=== PATIENT | male | born 1970 | race American Indian/Alaskan Native ===

== ENCOUNTER 2019-10-08 22:05 | Emergency (ER) | payer SELFPAY ==
[2019-10-08 22:10] VITALS: BP 150/93
--- NOTE | 2019-10-08 22:14 | Emergency Department Report ---
Stated Complaint: BACK PAIN/HIGH BP/TOOTHACHE Time Seen by Provider: 10/08/19 22:08 - HPI History of Present Illness: 49 y/o male comes in for right lower tooth pain that started today and lower back pain on the left that started yesterday. 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 He is aware that he has a bad tooth. Took Aleve for pain. - Exam Physical Exam: AxO times 4 NAD NAD Oral mucus moist left lower tooth decayed to the gum no swelling of the jaw on gingiva. MSE screening note: Focused history and physical exam performed. Due to findings the following was ordered: 49 y/o male comes in for right lower tooth pain that started today and lower back pain on the left that started yesterday. 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 He is aware that he has a bad tooth. Took Aleve for pain. Recommend to take Ibuprofen over the counter and to follow up with a dentist this week and your primary Care provider. ED Disposition for [facility] [place] Disposition: Z-07 MED SCREENING EXAM-LEFT Is pt being admited?: No Does the pt Need Aspirin: No Condition: Stable Additional Instructions: Recommend to take Ibuprofen over the counter and to follow up with a dentist this week and your primary Care provider. Referrals: [facility] [Outside] - 3-5 Days [facility] [Outside] - 3-5 Days [facility] [Outside] - 3-5 Days
== END 2019-10-08 22:50 | disposition left against medical advice (07) ==
LOC: ED 22:05
DX: K08.89 Other specified disorders of teeth and supporting structures (principal); M54.5 Low back pain; I10 Essential (primary) hypertension; J40 Bronchitis, not specified as acute or chronic
CPT/HCPCS: 99281

== ENCOUNTER 2020-01-05 20:04 | Emergency (ER) | payer SELFPAY ==
[2020-01-05 20:56] LABS: Bilirubin,Urine SM (Negative); Blood,Urine SM (Negative); Color,Urine Yellow (Yellow); Mucus,Urine 3+ /HPF
[2020-01-05 21:00] LABS: Ictotest,Urine Negative (Negative)
[2020-01-05 21:21] LABS: Basophils # (Auto) 0.1 K/mm3 (0.0-0.1); Eosinophils % (Auto) 0.4 % (0.0-4.3); Hemoglobin 15.1 gm/dl (11.8-15.2); Lymphocytes # (Auto) 0.8 K/mm3 (1.2-5.4); Mean Corpuscular HGB Conc 33 % (32-34); Mean Corpuscular Volume 86 fl (84-94); Monocytes # (Auto) 0.2 K/mm3 (0.0-0.8); Monocytes % (Auto) 2.8 % (0.0-7.3); Platelet Count 291 K/mm3 (140-440); Red Blood Count 5.36 M/mm3 (3.65-5.03); Red Cell Distribution Width 17.7 % (13.2-15.2)
[2020-01-05 21:43] LABS: Alanine Aminotransferase 9 units/L (7-56); Albumin 4.5 g/dL (3.9-5); BUN/Creatinine Ratio 9; Blood Urea Nitrogen 8 mg/dL (9-20); Calcium 9.7 mg/dL (8.4-10.2); Hemolysis Index 7
[2020-01-05] MEDS ORDERED: KETOROLAC 30 MG/1 ML INJ IV ONE (23:08)
[2020-01-05] MEDS ORDERED: SODIUM CHLORIDE 0.9% 1000 ML 1,000 ML IV ONE (23:08)
[2020-01-05] MEDS ORDERED: METOCLOPRAMIDE 10 MG/2 ML INJ IV ONE (23:09)
--- NOTE | 2020-01-05 23:12 | Emergency Department Report ---
ED Male HPI - General Chief complaint: Abdominal Pain Stated complaint: LEFT SIDE FLANK PAIN Time Seen by Provider: 01/05/20 22:48 Source: patient Mode of arrival: Ambulatory Limitations: No Limitations - History of Present Illness Initial comments: 49-year-old -[place] male presents to the emergency room for left flank pain that started this morning. Patient states it is sharp and having burning with urination. Patient reports nausea and vomiting. Patient reports he saw blood in his urine. He does admit to having a past medical history of kidney stones. Patient also reports he has a history of hypertension and has been out of his medications. MD Complaint: dysuria, other (Left flank pain) -: This morning Location: left flank Severity: severe Severity scale (0 -10): 9 Quality: burning, sharp Consistency: constant Improves with: none Worsens with: urination blood in urine, dysuria, nausea/vomiting. denies: discharge, swelling, mass - Related Data Sexually active: Yes Previous Rx's Medication Instructions Recorded Last Taken Type Ibuprofen [Motrin] 800 mg PO Q8H PRN #20 tablet 01/18/14 Unknown Rx HYDROcodone/APAP 5-325 [[place] 1 each PO Q6HR PRN #10 tablet 01/06/20 Unknown Rx 5-325 mg TAB] Ibuprofen [Motrin 600 MG tab] 600 mg PO Q8H PRN #30 tablet 01/06/20 Unknown Rx Metoprolol [Lopressor TAB] 25 mg PO BID #30 tablet 01/06/20 Unknown Rx Tamsulosin [Flomax] 0.4 mg PO QDAY #4 capsule 01/06/20 Unknown Rx amLODIPine 10 mg PO DAILY #15 tab 01/06/20 Unknown Rx cephALEXin [Keflex] 500 mg PO Q12HR 10 Days #20 cap 01/06/20 Unknown Rx Allergies Allergy/AdvReac Type Severity Reaction Status Date / Time No Known Allergies Allergy Unverified 01/18/14 13:57 ED Review of Systems ROS: Stated complaint: LEFT SIDE FLANK PAIN Other details as noted in HPI Comment: All other systems reviewed and negative ED Past Medical Hx - Past Medical History Previous Medical History?: Yes Hx Hypertension: Yes Hx Kidney Stones: Yes Hx Asthma: Yes Additional medical history: bronchitis - Surgical History Past Surgical History?: No - Social History Smoking Status: Never Smoker Substance Use Type: None - Medications Home Medications: Home Medications Medication Instructions Recorded Confirmed Last Taken Type Ibuprofen [Motrin] 800 mg PO Q8H PRN #20 tablet 01/18/14 Unknown Rx HYDROcodone/APAP 5-325 [[place] 1 each PO Q6HR PRN #10 tablet 01/06/20 Unknown Rx 5-325 mg TAB] Ibuprofen [Motrin 600 MG tab] 600 mg PO Q8H PRN #30 tablet 01/06/20 Unknown Rx Metoprolol [Lopressor TAB] 25 mg PO BID #30 tablet 01/06/20 Unknown Rx Tamsulosin [Flomax] 0.4 mg PO QDAY #4 capsule 01/06/20 Unknown Rx amLODIPine 10 mg PO DAILY #15 tab 01/06/20 Unknown Rx cephALEXin [Keflex] 500 mg PO Q12HR 10 Days #20 cap 01/06/20 Unknown Rx ED Physical Exam - General Limitations: No Limitations General appearance: alert, in distress - Head Head exam: Present: atraumatic, normocephalic - Eye Eye exam: Present: normal appearance - ENT ENT exam: Present: mucous membranes moist - Neck Neck exam: Present: normal inspection, full ROM - Respiratory Respiratory exam: Present: normal lung sounds bilaterally. Absent: respiratory distress - Cardiovascular Cardiovascular Exam: Present: regular rate, normal rhythm. Absent: systolic murmur, diastolic murmur, rubs, gallop - Extremities Exam Extremities exam: Present: normal inspection - Back Exam Back exam: Present: CVA tenderness (L) - Neurological Exam Neurological exam: Present: alert, oriented X3 - Psychiatric Psychiatric exam: Present: normal affect, normal mood - Skin Skin exam: Present: warm, dry, intact, normal color. Absent: rash ED Course Vital Signs 01/05/20 20:24 Temperature 98.5 F Pulse Rate 103 H Respiratory 16 Rate Blood Pressure 150/101 O2 Sat by Pulse 98 Oximetry ED Medical Decision Making - Lab Data Result diagrams: 01/05/20 20:54 01/05/20 20:54 - Medical Decision Making 49-year-old -[place] male presents to the emergency room for left flank pain that started this morning. Patient states it is sharp and having burning with urination. Patient reports nausea and vomiting. Patient reports he saw blood in his urine. He does admit to having a past medical history of kidney stones. Patient also reports he has a history of hypertension and has been out of his medications. CBC CMP urinalysis and CT. IV normal saline Reglan 10 mg and Toradol [address] shows a 6 x 4 mm nonobstructing kidney calculi on the left side. I do not feel that this is causing his colicky pain as I believe it is mostly due to a urinary tract infection. Patient will be sent home on pain medication Flomax and Keflex. Patient will be referred to urology. Critical care attestation.: If time is entered above; I have spent that time in minutes in the direct care of this critically ill patient, excluding procedure time. ED Disposition Clinical Impression: UTI (urinary tract infection), Kidney stone on left side Disposition: - TO HOME OR SELFCARE Is pt being admited?: No Does the pt Need Aspirin: No Condition: Stable Instructions: Urinary Tract Infection in Men (ED), Kidney Stones (ED) Additional Instructions: CT scan shows a kidney stone on the left side that is nonobstructing. I would like for you to increase your fluid intake take your pain medication and complete your antibiotics for your urinary tract infection. Is very important for you to follow-up with a urologist I have referred you to Dr. Fernandez. Prescriptions: amLODIPine 10 mg PO DAILY #15 tab Tamsulosin [Flomax] 0.4 mg PO QDAY #4 capsule cephALEXin [Keflex] 500 mg PO Q12HR 10 Days #20 cap Metoprolol [Lopressor TAB] 25 mg PO BID #30 tablet Ibuprofen [Motrin 600 MG tab] 600 mg PO Q8H PRN #30 tablet PRN Reason: Pain HYDROcodone/APAP 5-325 [[place] 5-325 mg TAB] 1 each PO Q6HR PRN #10 tablet PRN Reason: Pain Referrals: PRIMARY CAREMD [Primary Care Provider] - 3-5 Days ANNA FERNANDEZ MD [Staff Physician] - 3-5 Days Forms: Work/School Release Form(ED)
--- NOTE | 2020-01-06 00:03 | Cat Scan Report ---
CT ABDOMEN AND PELVIS WITHOUT CONTRAST INDICATION / CLINICAL INFORMATION: Left flank pain. TECHNIQUE: Axial CT images were obtained through the abdomen and pelvis without IV contrast. All CT scans at [facility] location are performed using CT dose reduction for ALARA by means of automated exposure control. COMPARISON: None available. FINDINGS: LOWER CHEST: No significant abnormality. LIVER: No significant abnormality. GALLBLADDER: No significant abnormality. BILE DUCTS: No significant abnormality. PANCREAS: No significant abnormality. SPLEEN: No significant abnormality. ADRENALS: No significant abnormality. RIGHT KIDNEY and URETER: No significant abnormality. LEFT KIDNEY and URETER: 6 x 4 mm calculus within the lower pole the left kidney. No obstructive left ureteral calculus identified.. STOMACH and SMALL BOWEL: No significant abnormality. COLON: No significant abnormality. APPENDIX: No significant abnormality. PERITONEUM: No free fluid. No free air. No fluid collection. LYMPH NODES: Bilateral inguinal adenopathy.. AORTA and ARTERIES: No significant abnormality. IVC and VEINS: No significant abnormality. URINARY BLADDER: No significant abnormality. REPRODUCTIVE ORGANS: No significant abnormality. ADDITIONAL FINDINGS: None. SKELETAL SYSTEM: No significant abnormality. IMPRESSION: 1. Nonobstructive 6 x 4 mm calculus within the lower pole the left kidney. 2. Bilateral inguinal adenopathy, worse in the right. Signer Name: Prashant Bullock MD Signed: 01/05/2020 11:59 PM Workstation Name: [id number]
[2020-01-06] MEDS ORDERED: oxyCODONE /ACETAMINOPHEN 5-325MG TAB PO ONE (00:28)
[2020-01-06] MEDS ORDERED: TAMSULOSIN 0.4 MG CAP PO ONE (00:29)
[2020-01-06 01:35] VITALS: BP 152/93
== END 2020-01-06 01:20 | disposition home or self-care (01) ==
LOC: ED 20:04
DX: N39.0 Urinary tract infection, site not specified (principal); N20.0 Calculus of kidney; J45.909 Unspecified asthma, uncomplicated; I10 Essential (primary) hypertension; Z79.899 Other long term (current) drug therapy
CPT/HCPCS: 36415; 74176; 80053; 81001; 85025; 87086; 96361; 96374; 96375; 99284; J1885; J2765; J7030

== ENCOUNTER 2020-08-11 00:26 | Emergency (ER) | payer SELFPAY ==
[2020-08-11] MEDS ORDERED: IBUPROFEN 600 MG TAB PO ONE (01:36)
[2020-08-11] MEDS ORDERED: SULFAMETHOXAZOLE/TRIMETHOPRIM 800/160MG DS TAB PO ONE (01:36)
[2020-08-11] MEDS ORDERED: LIDOCAINE-MPF (1%) 10 MG/1 ML VIAL 5 ML INFILTRATI ONE (01:36)
[2020-08-11 01:37] VITALS: BP 127/87
--- NOTE | 2020-08-11 02:55 | Emergency Department Report ---
ED General Adult HPI - General Chief complaint: Headache Stated complaint: LUMP ON SIDE OF HEAD Source: patient Mode of arrival: Ambulatory Limitations: No Limitations - History of Present Illness Initial comments: Patient is a 50-year-old -[place] male with a history of hypertension, asthma, kidney stones who presents to the ED with complaint of acute onset painful swollen mild erythematous maculopapular rash on right temporal scalp for the last 1 week, worse in the last 2 days. Patient states that the pain and swelling of worsened in the last 24 hours. Patient denies dizziness, syncope, chest pain, shortness of breath, headache, nausea, vomiting, sore throat, traumatic injury, neck pain, fall, hearing loss or change in vision. MD Complaint: right temporal scalp painful swollen rash -: Sudden, week(s) (1) Location: head Radiation: non-radiation Severity scale (0 -10): 5 Quality: aching, sharp Consistency: constant Improves with: none Worsens with: none Associated Symptoms: denies other symptoms, rash (Swollen, painful erythematous maculopapular fluctuant rash on right temporal scalp). denies: confusion, chest pain, cough, diaphoresis, headaches, loss of appetite, malaise, nausea/vomiting, seizure, syncope, other Treatments Prior to Arrival: none - Related Data Previous Rx's Medication Instructions Recorded Last Taken Type Ibuprofen [Motrin] 800 mg PO Q8H PRN #20 tablet 01/18/14 Unknown Rx HYDROcodone/APAP 5-325 [[place] 1 each PO Q6HR PRN #10 tablet 01/06/20 Unknown Rx 5-325 mg TAB] Tamsulosin [Flomax] 0.4 mg PO QDAY #4 capsule 01/06/20 Unknown Rx cephALEXin [Keflex] 500 mg PO Q12HR 10 Days #20 cap 01/06/20 Unknown Rx Ibuprofen [Motrin 600 MG tab] 600 mg PO Q8H PRN #30 tablet 08/11/20 Unknown Rx Metoprolol [Lopressor TAB] 25 mg PO BID #30 tablet 08/11/20 Unknown Rx amLODIPine 10 mg PO DAILY #30 tab 08/11/20 Unknown Rx Allergies Allergy/AdvReac Type Severity Reaction Status Date / Time No Known Allergies Allergy Unverified 01/18/14 13:57 ED Review of Systems ROS: Stated complaint: LUMP ON SIDE OF HEAD Other details as noted in HPI Constitutional: denies: chills, fever Eyes: denies: eye pain, eye discharge, vision change ENT: denies: ear pain, throat pain Respiratory: denies: cough, shortness of breath, wheezing Cardiovascular: denies: chest pain, palpitations Endocrine: no symptoms reported Gastrointestinal: denies: abdominal pain, nausea, diarrhea Genitourinary: denies: urgency, dysuria Musculoskeletal: denies: back pain, joint swelling, arthralgia Skin: rash (Swollen, painful mild erythematous maculopapular rash on right temporal scalp), change in color. denies: lesions, pruritus Neurological: denies: headache, weakness, paresthesias Psychiatric: denies: anxiety, depression Hematological/Lymphatic: denies: easy bleeding, easy bruising ED Past Medical Hx - Past Medical History Hx Hypertension: Yes Hx Kidney Stones: Yes Hx Asthma: Yes Additional medical history: bronchitis - Social History Smoking Status: Current Every Day Smoker Substance Use Type: Marijuana - Medications Home Medications: Home Medications Medication Instructions Recorded Confirmed Last Taken Type Ibuprofen [Motrin] 800 mg PO Q8H PRN #20 tablet 01/18/14 Unknown Rx HYDROcodone/APAP 5-325 [[place] 1 each PO Q6HR PRN #10 tablet 01/06/20 Unknown Rx 5-325 mg TAB] Tamsulosin [Flomax] 0.4 mg PO QDAY #4 capsule 01/06/20 Unknown Rx cephALEXin [Keflex] 500 mg PO Q12HR 10 Days #20 cap 01/06/20 Unknown Rx Ibuprofen [Motrin 600 MG tab] 600 mg PO Q8H PRN #30 tablet 08/11/20 Unknown Rx Metoprolol [Lopressor TAB] 25 mg PO BID #30 tablet 08/11/20 Unknown Rx amLODIPine 10 mg PO DAILY #30 tab 08/11/20 Unknown Rx ED Physical Exam - General Limitations: No Limitations General appearance: alert, in no apparent distress - Head Head exam: Present: atraumatic, normocephalic, normal inspection - Eye Eye exam: Present: normal appearance, PERRL, EOMI - ENT ENT exam: Present: normal exam, normal orophraynx, mucous membranes moist, TM's normal bilaterally, normal external ear exam - Neck Neck exam: Present: normal inspection, full ROM - Respiratory Respiratory exam: Present: normal lung sounds bilaterally. Absent: respiratory distress, wheezes, rales, rhonchi, stridor, chest wall tenderness, accessory muscle use, decreased breath sounds - Cardiovascular Cardiovascular Exam: Present: regular rate, normal rhythm, normal heart sounds. Absent: systolic murmur, diastolic murmur, rubs, gallop - GI/Abdominal GI/Abdominal exam: Present: soft, normal bowel sounds. Absent: tenderness, guarding, rebound, hyperactive bowel sounds, hypoactive bowel sounds - Extremities Exam Extremities exam: Present: normal inspection, full ROM, normal capillary refill - Back Exam Back exam: Present: normal inspection, full ROM. Absent: tenderness, CVA tenderness (R), CVA tenderness (L), muscle spasm, paraspinal tenderness, vertebral tenderness - Neurological Exam Neurological exam: Present: alert, oriented X3, CN II-XII intact, normal gait, reflexes normal - Psychiatric Psychiatric exam: Present: normal affect, normal mood - Skin Skin exam: Present: warm, dry, intact, normal color, rash (Swollen, tender, fluctuant, mildly erythematous maculopapular rash on right temporal scalp), erythema ED Course Vital Signs 08/11/20 01:30 Temperature 98.7 F Pulse Rate 88 Respiratory 18 Rate Blood Pressure 127/87 [Right] O2 Sat by Pulse 99 Oximetry - I & D Right Head Type of Procedure: Simple Site: Right temporal scalp Blade Size: 11 I & D Procedure: betadine prep, sterile drapes applied, sterile dressing applied Progress: Patient tolerated the procedure well. The area was anesthetized with a local anesthesia lidocaine 1% solution after cleaning with normal saline and Betadine. The rash was then incised with size 11 scalpel blade. Copious thick yellowish-white purulent discharge was expressed from the wound. The wound was then debrided thoroughly with normal saline and dressed appropriately. Patient tolerated procedure well. Patient was then discharged home on pain medications and antibiotics advised to follow-up with his primary care physician in 7 to 10 days for reevaluation or return to the ED immediately if symptoms get worse. ED Medical Decision Making - Medical Decision Making This is a 50-year-old -[place] male with a history of hypertension, asthma, kidney stones who presents to the ED with complaint of acute onset painful swollen mild erythematous maculopapular rash on right temporal scalp for the last 1 week, worse in the last 2 days. Patient states that the pain and swelling of worsened in the last 24 hours. In the ED, patient is alert and oriented x3 and is not in distress with normal vital signs. Patient was treated for pain in the ED and also given initial oral antibiotics in the ED. Right temporal scalp abscess was incised and drained per protocol. Patient tolerated procedure well. Patient was thereafter discharged home on pain medications and antibiotics and advised to follow-up with his primary care physician in 7 to 10 days for reevaluation or return to the ED immediately if symptoms get worse. - Differential Diagnosis Acute folliculitis; cutaneous abscess; cellulitis; Critical care attestation.: If time is entered above; I have spent that time in minutes in the direct care of this critically ill patient, excluding procedure time. ED Disposition Clinical Impression: Acute folliculitis, Cutaneous abscess of head excluding face Disposition: DC- TO HOME OR SELFCARE Is pt being admited?: No Does the pt Need Aspirin: No Condition: Stable Instructions: Skin Abscess, [id number], Folliculitis Additional Instructions: Take medication with food, drink plenty of fluids and follow-up with your primary care physician in 7 to 10 days for reevaluation. Return to the ED immediately if symptoms get worse. Prescriptions: amLODIPine 10 mg PO DAILY #30 tab Metoprolol [Lopressor TAB] 25 mg PO BID #30 tablet Ibuprofen [Motrin 600 MG tab] 600 mg PO Q8H PRN #30 tablet PRN Reason: Pain Referrals: [facility] [Provider Group] - 7-10 days Time of Disposition: 02:57 Print Language: ESTONIAN
== END 2020-08-11 03:10 | disposition home or self-care (01) ==
LOC: ED 00:26
DX: L02.811 Cutaneous abscess of head [any part, except face] (principal); L73.9 Follicular disorder, unspecified; I10 Essential (primary) hypertension; J45.909 Unspecified asthma, uncomplicated; F17.200 Nicotine dependence, unspecified, uncomplicated; F12.90 Cannabis use, unspecified, uncomplicated; Z79.899 Other long term (current) drug therapy; Z87.442 Personal history of urinary calculi
CPT/HCPCS: 99282

== ENCOUNTER 2022-02-21 11:05 | Emergency (ER) | payer MEDICAID ==
[2022-02-21] MEDS ORDERED: ONDANSETRON 4 MG/2 ML INJ IV ONE (11:23)
[2022-02-21] MEDS ORDERED: fentaNYL 100 MCG/2 ML INJ IV ONE (11:23)
[2022-02-21] MEDS ORDERED: KETOROLAC 30 MG/1 ML INJ IV ONE (11:24)
--- NOTE | 2022-02-21 11:30 | Emergency Department Report ---
HPI - General Chief Complaint: Abdominal Pain Time Seen by Provider: 02/21/22 11:16 - HPI HPI: Room 18 The patient is a 51-year-old male present with a chief complaint of abdominal pain and left flank pain. The patient states he has had constant left flank pain for the past 3 months ever since he was diagnosed with his last kidney stone. Patient is to dysuria for the same amount of time in addition to hematuria. Patient denies history of fever. Patient states he has noticed scrotal swelling for the past 2 to 3 days. The patient states his pain feels consistent with his previous bouts of renal colic. ED Past Medical Hx - Past Medical History Hx Hypertension: Yes Hx Kidney Stones: Yes Hx Asthma: Yes Additional medical history: bronchitis - Surgical History Additional Surgical History: Kidney stones - Family History Family history: no significant - Social History Smoking Status: Never Smoker Substance Use Type: None (Denies illicit drug use) - Medications Home Medications: Home Medications Medication Instructions Recorded Confirmed Last Taken Type Ibuprofen [Motrin] 800 mg PO Q8H PRN #20 tablet 01/18/14 Unknown Rx HYDROcodone/APAP 5-325 [[place] 1 each PO Q6HR PRN #10 tablet 01/06/20 Unknown Rx 5-325 mg TAB] Tamsulosin [Flomax] 0.4 mg PO QDAY #4 capsule 01/06/20 Unknown Rx cephALEXin [Keflex] 500 mg PO Q12HR 10 Days #20 cap 01/06/20 Unknown Rx Ibuprofen [Motrin 600 MG tab] 600 mg PO Q8H PRN #30 tablet 08/11/20 Unknown Rx Sulfamethoxazole/Trimethoprim 1 each PO Q12H #20 tablet 08/11/20 Unknown Rx [Bactrim DS TAB] HYDROcodone/APAP 5-325 [[place] 1 - 2 each PO Q6HR PRN #14 tablet 02/21/22 Unknown Rx 5/325] Metoprolol [Lopressor TAB] 25 mg PO BID #30 tablet 02/21/22 Unknown Rx amLODIPine 10 mg PO DAILY #30 tab 02/21/22 Unknown Rx levoFLOXacin [Levofloxacin] 500 mg PO QDAY #10 02/21/22 Unknown Rx ED Review of Systems ROS: Stated complaint: LT SIDE ABD PAIN Other details as noted in HPI Constitutional: denies: fever Eyes: denies: eye pain ENT: denies: throat pain Respiratory: no symptoms reported Cardiovascular: denies: chest pain Endocrine: no symptoms reported Gastrointestinal: abdominal pain, nausea, vomiting Genitourinary: dysuria, hematuria, testicular pain Musculoskeletal: back pain Neurological: denies: headache Physical Exam - Physical Exam Vital Signs: Vital Signs 02/21/22 11:11 Temperature 99.5 F Pulse Rate 86 Respiratory 18 Rate Blood Pressure 153/114 [Left] O2 Sat by Pulse 99 Oximetry Physical Exam: GENERAL: The patient is well-developed well-nourished male lying on EMS stretcher holding emesis basin appearing to be in moderate discomfort. [] HEENT: Normocephalic. Atraumatic. Extraocular motions are intact. Patient has moist mucous membranes. NECK: Supple. Trachea midline CHEST/LUNGS: Clear to auscultation. There is no respiratory distress noted. HEART/CARDIOVASCULAR: Regular. There is no tachycardia. There is no gallop rub or murmur. ABDOMEN: Abdomen is soft, with tenderness to palpation in the suprapubic, left upper quadrant and left lower quadrant. Patient has normal bowel sounds. There is no abdominal distention. SKIN: There is no rash. There is no edema. There is no diaphoresis. NEURO: The patient is awake, alert, and oriented. The patient is cooperative. The patient has no focal neurologic deficits. The patient has normal speech. GCS 15 MUSCULOSKELETAL: There is right CVA tenderness. There is no evidence of acute injury. GENITOURINARY: Tender swollen right testicle. ED Course Vital Signs 02/21/22 11:11 Temperature 99.5 F Pulse Rate 86 Respiratory 18 Rate Blood Pressure 153/114 [Left] O2 Sat by Pulse 99 Oximetry ED Medical Decision Making - Lab Data Result diagrams: 02/21/22 11:38 02/21/22 11:38 Laboratory Tests 02/21/22 02/21/22 02/21/22 11:38 11:38 13:32 WBC 9.0 RBC 5.34 H Hgb 15.2 Hct 44.8 MCV 84 MCH 28 MCHC 34 RDW 16.8 H Plt Count 323 Lymph % (Auto) 13.0 L [place] % (Auto) 7.4 H Eos % (Auto) 1.0 Baso % (Auto) 0.8 Lymph # (Auto) 1.2 [place] # (Auto) 0.7 Eos # (Auto) 0.1 Baso # (Auto) 0.1 Seg Neutrophils % 77.8 H Seg Neutrophils # 7.0 Sodium 140 Potassium 4.1 Chloride 102.2 Carbon Dioxide 26 Anion Gap 16 BUN 8 L Creatinine 1.1 Estimated GFR > 60 BUN/Creatinine Ratio 7 Glucose 100 Calcium 9.9 Total Bilirubin 0.80 AST 10 ALT 7 Alkaline Phosphatase 86 Total Protein 7.5 Albumin 4.3 Albumin/Globulin Ratio 1.3 Lipase 19 Urine Color Yellow Urine Turbidity Cloudy Specific [place] (Man) 1.020 Ur Protein (Man) 2+ Ur Ketones (Man) Negative Ur Nitrite (Man) Negative Ur Reducing Substances Not Reportable Urine Bilirubin (Man) Negative Urine Ictotest Not Reportable Leukocyte Esterase (Man) Moderate Urine WBC (Auto) > 182.0 H Urine RBC (Auto) 113.0 U Epithel Cells (Auto) 2.0 Urine Bacteria (Auto) 1+ Urine RBC (Manual) 3+ Hyaline Casts 2 Urine Mucus 1+ Urine Yeast (Budding) 1+ - Radiology Data Radiology results: report reviewed (Testicular ultrasound, CT abdomen pelvis), image reviewed (Testicular ultrasound, CT abdomen pelvis) [address] [address] Ultrasound Report Signed Patient: PAL IRELAND MR#: [id number] : 1970 Acct:[id number] Age/Sex: 51 / M ADM Date: 02/21/22 Loc: ED Attending Dr: Ordering Physician: KARL MCWILLIAMS MD Date of Service: 02/21/22 Procedure(s): US testicular doppler comp Accession Number(s): [id number] cc: KARL MCWILLIAMS MD ULTRASOUND SCROTUM INDICATION / CLINICAL INFORMATION: Right testicular pain and swelling. COMPARISON: CT dated 02/21/22 FINDINGS -- RIGHT: TESTIS: Size = 2.6 x 4.2 x 3.6 cm. - Appearance: No significant abnormality. - Cyst / Mass: None. - Color Doppler Flow: No significant abnormality. EPIDIDYMIS: Mildly enlarged and hyperemic. HYDROCELE: Moderate size, slightly complex hydrocele. VARICOCELE: None demonstrated. FINDINGS -- LEFT: TESTIS: Size = 5.1 x 2.2 x 3.5 cm. - Appearance: No significant abnormality. - Cyst / Mass: None. - Color Doppler Flow: No significant abnormality. EPIDIDYMIS: No significant abnormality. HYDROCELE: None. VARICOCELE: None demonstrated. ADDITIONAL FINDINGS: None. IMPRESSION: 1. Right epididymitis with moderate sized, slightly complex hydrocele. Signer Name: Shanelle Serrato MD Signed: 02/21/2022 1:32 PM Workstation Name: [id number] Transcribed By: DT Dictated By: Christian Serrato MD Electronically Authenticated By: Christian Serrato MD Signed Date/Time: 02/21/22 133 DD/ 133 TD/TT: [facility] [address] [place] [address] Cat Scan Report Signed Patient: PAL IRELAND MR#: [id number] : 1970 Acct:[id number] Age/Sex: 51 / M ADM Date: 02/21/22 Loc: ED Attending Dr: Ordering Physician: KARL MCWILLIAMS MD Date of Service: 02/21/22 Procedure(s): CT abdomen pelvis wo con Accession Number(s): [id number] cc: KARL MCWILLIAMS MD CT ABDOMEN AND PELVIS WITHOUT CONTRAST INDICATION / CLINICAL INFORMATION: Left abdomen/left flank pain. TECHNIQUE: Axial CT images were obtained through the abdomen and pelvis without IV contrast. All CT scans at this location are performed using CT dose reduction for ALARA by means of automated exposure control. COMPARISON: CT dated 01/05/20 FINDINGS: LOWER CHEST: No significant abnormality. LIVER: No significant abnormality. GALLBLADDER: No significant abnormality. BILE DUCTS: No significant abnormality. PANCREAS: No significant abnormality. SPLEEN: No significant abnormality. ADRENALS: No significant abnormality. RIGHT KIDNEY / URETER: No significant abnormality. LEFT KIDNEY / URETER: Interval placement of left ureteral stent since prior study in 2019. There is extensive calcification of the entire length of ureteral stent extending to the urinary bladder. No hydronephrosis. Nonobstructing 7 mm stone in the lower pole. STOMACH / SMALL BOWEL: No significant abnormality. COLON: No significant abnormality. APPENDIX: No significant abnormality. PERITONEUM: No free fluid. No free air. No fluid collection. LYMPH NODES: No significant adenopathy. AORTA / ARTERIES: No significant abnormality. IVC / VEINS: No significant abnormality. URINARY BLADDER: Calcified stone around the distal end of the left ureteral stent measuring 2.6 x 2.7 cm. REPRODUCTIVE ORGANS: No significant abnormality. ADDITIONAL FINDINGS: None. SKELETAL SYSTEM: No significant abnormality. IMPRESSION: 1. Left ureteral stent with extensive calcification along the length of the stent with 2.7 cm calcified stone around the distal stent in the urinary bladder. 2. Nonobstructing stone in the lower pole the left kidney. No hydronephrosis. Signer Name: Shanelle Serrato MD Signed: 02/21/2022 2:02 PM Workstation Name: [id number] Transcribed By: DT Dictated By: Christian Serrato MD Electronically Authenticated By: Christian Serrato MD Signed Date/Time: 02/21/22 1402 DD/ 1354 TD/TT: - Differential Diagnosis Renal colic, pyelonephritis, epididymitis, testicular torsion, diverticulit Critical care attestation.: If time is entered above; I have spent that time in minutes in the direct care of this critically ill patient, excluding procedure time. ED Disposition Clinical Impression: Acute epididymitis, Right testicular pain, Pyelonephritis Disposition: 01 HOME / SELF CARE / HOMELESS Is pt being admited?: No Does the pt Need Aspirin: No Condition: Stable Instructions: Epididymitis (ED), Epididymitis, Pyelonephritis, Adult, [id number] Additional Instructions: Return to the emergency department should you develop worsening symptoms, in ability to tolerate food or liquids, high fever or any other concerns Prescriptions: amLODIPine 10 mg PO DAILY #30 tab levoFLOXacin [Levofloxacin] 500 mg PO QDAY #10 Metoprolol [Lopressor TAB] 25 mg PO BID #30 tablet HYDROcodone/APAP 5-325 [[place] 5/325] 1 - 2 each PO Q6HR PRN #14 tablet PRN Reason: Pain Referrals: [facility] [Provider Group] - 3-5 Days (You can follow-up with a primary physician at the [facility] to be established as a patient) ANNA FERNANDEZ MD [Staff Physician] - 3-5 Days (Dr. Fernandez is a urologist. Please follow-up with him for further evaluation of your epididymitis) Forms: STI Treatment and Prevention Time of Disposition: 14:26
[2022-02-21 11:52] LABS: Basophils # (Auto) 0.1 K/mm3 (0.0-0.1); Basophils % (Auto) 0.8 % (0.0-1.8); Eosinophils # (Auto) 0.1 K/mm3 (0.0-0.4); Hematocrit 44.8 % (35.5-45.6); Hemoglobin 15.2 gm/dl (11.8-15.2); Lymphocytes # (Auto) 1.2 K/mm3 (1.2-5.4); Mean Corpuscular HGB Conc 34 % (32-34); Mean Corpuscular Volume 84 fl (84-94); Monocytes # (Auto) 0.7 K/mm3 (0.0-0.8); Monocytes % (Auto) 7.4 % (0.0-7.3); Platelet Count 323 K/mm3 (140-440); Red Blood Count 5.34 M/mm3 (3.65-5.03); Red Cell Distribution Width 16.8 % (13.2-15.2)
[2022-02-21 12:14] LABS: Alanine Aminotransferase 7 units/L (7-56); Albumin 4.3 g/dL (3.9-5); BUN/Creatinine Ratio 7; Blood Urea Nitrogen 8 mg/dL (9-20); Calcium 9.9 mg/dL (8.4-10.2); Hemolysis Index 1
--- NOTE | 2022-02-21 13:36 | Ultrasound Report ---
ULTRASOUND SCROTUM INDICATION / CLINICAL INFORMATION: Right testicular pain and swelling. COMPARISON: CT dated 02/21/22 FINDINGS -- RIGHT: TESTIS: Size = 2.6 x 4.2 x 3.6 cm. - Appearance: No significant abnormality. - Cyst / Mass: None. - Color Doppler Flow: No significant abnormality. EPIDIDYMIS: Mildly enlarged and hyperemic. HYDROCELE: Moderate size, slightly complex hydrocele. VARICOCELE: None demonstrated. FINDINGS -- LEFT: TESTIS: Size = 5.1 x 2.2 x 3.5 cm. - Appearance: No significant abnormality. - Cyst / Mass: None. - Color Doppler Flow: No significant abnormality. EPIDIDYMIS: No significant abnormality. HYDROCELE: None. VARICOCELE: None demonstrated. ADDITIONAL FINDINGS: None. IMPRESSION: 1. Right epididymitis with moderate sized, slightly complex hydrocele. Signer Name: Shanelle Serrato MD Signed: 02/21/2022 1:32 PM Workstation Name: [id number]
[2022-02-21 13:51] LABS: Bacteria,Urine 1+ /HPF (Negative); Hyaline Casts,Urine 2 /LPF; Mucus,Urine 1+ /HPF
[2022-02-21] MEDS ORDERED: BACITRACIN ZINC OINT 28.4 GM TP ONE (13:55)
[2022-02-21 13:56] LABS: Color,Urine Yellow (Yellow); WBC,Urine > 182.0 /HPF (0.0-6.0)
--- NOTE | 2022-02-21 14:06 | Cat Scan Report ---
CT ABDOMEN AND PELVIS WITHOUT CONTRAST INDICATION / CLINICAL INFORMATION: Left abdomen/left flank pain. TECHNIQUE: Axial CT images were obtained through the abdomen and pelvis without IV contrast. All CT scans at this location are performed using CT dose reduction for ALARA by means of automated exposure control. COMPARISON: CT dated 01/05/20 FINDINGS: LOWER CHEST: No significant abnormality. LIVER: No significant abnormality. GALLBLADDER: No significant abnormality. BILE DUCTS: No significant abnormality. PANCREAS: No significant abnormality. SPLEEN: No significant abnormality. ADRENALS: No significant abnormality. RIGHT KIDNEY / URETER: No significant abnormality. LEFT KIDNEY / URETER: Interval placement of left ureteral stent since prior study in 2019. There is e xtensive calcification of the entire length of ureteral stent extending to the urinary bladder. No hy dronephrosis. Nonobstructing 7 mm stone in the lower pole. STOMACH / SMALL BOWEL: No significant abnormality. COLON: No significant abnormality. APPENDIX: No significant abnormality. PERITONEUM: No free fluid. No free air. No fluid collection. LYMPH NODES: No significant adenopathy. AORTA / ARTERIES: No significant abnormality. IVC / VEINS: No significant abnormality. URINARY BLADDER: Calcified stone around the distal end of the left ureteral stent measuring 2.6 x 2.7 cm. REPRODUCTIVE ORGANS: No significant abnormality. ADDITIONAL FINDINGS: None. SKELETAL SYSTEM: No significant abnormality. IMPRESSION: 1. Left ureteral stent with extensive calcification along the length of the stent with 2.7 cm calcifi ed stone around the distal stent in the urinary bladder. 2. Nonobstructing stone in the lower pole the left kidney. No hydronephrosis. Signer Name: Shanelle Serrato MD Signed: 02/21/2022 2:02 PM Workstation Name: [id number]
[2022-02-21] MEDS ORDERED: cefTRIAXone/NS 1 GM/50 ML 1 GM/50 ML BAG IV ONE (14:17)
[2022-02-21 16:30] VITALS: BP 127/65
== END 2022-02-21 16:30 | disposition home or self-care (01) ==
LOC: ED 11:05
DX: N45.1 Epididymitis (principal); N12 Tubulo-interstitial nephritis, not specified as acute or chronic; N50.811 Right testicular pain; I10 Essential (primary) hypertension; J45.909 Unspecified asthma, uncomplicated; Z87.442 Personal history of urinary calculi; Z79.899 Other long term (current) drug therapy
CPT/HCPCS: 36415; 74176; 80053; 81001; 83690; 85025; 93975; 96365; 96375; 99284; J1885; J2405; J3010